=== PATIENT | female | born 1950 | race Caucasian/White ===

== ENCOUNTER 2018-08-14 10:20 | Emergency (ER) | payer MEDICARE, OTHER ==
[~2018-08-14] VITALS: Ht 157.5 cm; Wt 56.2 kg
[~2018-08-14 10:20] MED LIST: ACEBUTCAFT PO; ACEDIPPM; ALBU90OI INH; ALBU90OI6 INH; ALER PO; AMLO5 PO; ATEN50 PO; Aerochamber1 EACH MC; Allergy Relief10 M1 PO; Amlodipine Besyl5 MG PO; Antivert25 MG PO; BENADRYL 25MG PO; BISA10S PR; BUDE10.22 INH; BUTALB-ACETAMI1 EACH PO; CEPH500 PO; CHLO25B PO; CITA20 PO; CLON.5; CODACE30 PO; Colace100 MG PO; DIPH50 PO; DOXE50; Dilaudid 2 mg Ta2 MG PO; ENOX40I SC; FAMO20 PO; FAMO40 PO; FERR160 PO; FERR325 PO; FERROUS SULFATE PO; FLUC150A PO; FLUT44OIA; FURO40 PO; Flonase 0.05% N16 GM; Flovent Diskus50 MCG IH; HYDCHL25; HYDCHL25 PO; HYDCOR20 PO; IBUP600 PO; LISI5 PO; LITH300C PO; LITH300ER PO; LITH450ER PO; LITHIUM CARBONATE PO; LITHIUM PO; LORA10 PO; LOSHYD; Lithium Carbon450 MG PO; METF500 PO; MOME220I; MULVITA; Norco 5-325 Ta1 EACH PO; OMEP20ER PO; OMEPRAZOLE MAGN20 MG PO; OTC ALLERGY MED; OXYACE5T PO; PARO25; Prilosec Otc20 MG; Prilosec Otc20 MG PO; QUET100 PO; QUET25 PO; QUETIAPINE 50 MG PO; SEROQUEL PO; SERT100; SERT25; SERT50 PO; SIMV10 PO; Seroquel50 MG PO; THERAPEUTIC-M1 EAC1 PO; TOPI50 PO; TRAZ100 PO; TRIA80TC; TRIA80TC TOP; Vibramycin100 MG PO
[2018-08-14] MEDS ORDERED: FURO40 PO (10:51)
[2018-08-14] MEDS ORDERED: ASPI81CH PO (10:51)
[2018-08-14] MEDS ORDERED: POTA10T PO (10:51)
[2018-08-14] MEDS ORDERED: LISI5 PO (10:52)
[2018-08-14 11:00] LABS: BASOPHILS ABSOLUTE AUTO 0.04 K/mm3 (0.00-0.23); BASOPHILS PERCENT AUTO 0 % (0-2); EOSINOPHILS ABSOLUTE AUTO 0.08 K/mm3 (0.00-0.68); EOSINOPHILS PERCENT AUTO 1 % (0-6); Hematocrit 46.7 % (33.0-51.0); IMMATURE GRAN ABSOLUTE AUTO 0.03 K/mm3 (0.00-0.10); IMMATURE GRAN PERCENT AUTO 0 % (0-1); LYMPHOCYTES ABSOLUTE AUTO 0.52 K/mm3 (0.84-5.20); LYMPHOCYTES PERCENT AUTO 6 % (21-46); MONOCYTES ABSOLUTE AUTO 0.52 K/mm3 (0.16-1.47); MONOCYTES PERCENT AUTO 6 % (4-13); Mean Corpuscular HGB 30.5 pg (26.0-34.0); Mean Corpuscular HGB Conc 32.1 g/dL (31.5-36.5); Mean Corpuscular Volume 95 fL (80-100); Mean Platelet Volume 11.4 fL (9.1-12.4); NEUTROPHILS ABSOLUTE AUTO 7.84 K/mm3 (1.96-9.15); NEUTROPHILS PERCENT AUTO 87 % (41-73); Platelet Count 192 K/mm3 (150-400); RDW Coefficient Variation 13.3 % (11.7-14.2); RDW Standard Deviation 46.9 fL (35.1-46.3); Red Blood Cell Count 4.92 M/mm3 (3.80-5.20); White Blood Cell Count 9.03 K/mm3 (4.00-11.30)
[2018-08-14 11:19] LABS: Alanine Aminotransfer (ALT/SGP 41 U/L (12-78); Albumin, Blood 4.1 g/dL (3.4-5.0); Albumin/Globulin Ratio 1.2 (0.8-1.8); Alk Phos 115 U/L (50-136); Anion Gap 7 mmol/L (6-16); Aspartate Aminotrans (AST/SGOT 23 U/L (12-37); Bilirubin, Total 0.4 mg/dL (0.1-1.0); Blood Urea Nitrogen 24 mg/dL (8-24); Bun/Creatinine Ratio 25.6 (12.0-20.0); CO2, Blood 25 mmol/L (21-32); Calcium, Blood 9.3 mg/dL (8.5-10.1); Chloride, Blood 112 mmol/L (98-108); Creatinine, Blood 0.94 mg/dL (0.40-1.00); Globulin, Blood 3.3 g/dL (2.2-4.0); Glomerular Filtration Rate >60 (60-); Glucose, Blood 105 mg/dL (70-99); Potassium, Blood 3.5 mmol/L (3.5-5.5); Sodium, Blood 144 mmol/L (136-145); Total Protein, Blood 7.4 g/dL (6.4-8.2); Troponin I <0.015 ng/mL (0.000-0.040)
[2018-08-14 12:25] LABS: Lithium 0.39 mmol/L (0.60-1.20)
[2018-08-14] MEDS ORDERED: HYDR1TAB94 PO (14:38)
[2018-08-15] MEDS ORDERED: MONT10T PO (13:29)
[2018-08-15] MEDS ORDERED: FERSU90EL PO (13:30)
[2018-08-15] MEDS ORDERED: TRIA50 PO (13:30)
== END 2018-08-14 15:04 | disposition home or self-care (01) ==
LOC: ER 10:20
PROVIDERS: Emergency Medicine
DX: S82.831A Other fracture of upper and lower end of right fibula, initial encounter for closed fracture (principal); R55 Syncope and collapse; I73.9 Peripheral vascular disease, unspecified; F31.9 Bipolar disorder, unspecified; I10 Essential (primary) hypertension; J45.909 Unspecified asthma, uncomplicated; Z88.0 Allergy status to penicillin; Z88.2 Allergy status to sulfonamides; Z88.8 Allergy status to other drugs, medicaments and biological substances; Z79.82 Long term (current) use of aspirin; Z79.899 Other long term (current) drug therapy; X58.XXXA Exposure to other specified factors, initial encounter
CPT/HCPCS: 29515; 70450; 71046; 73610; 73620; 80053; 80178; 84484; 85025; 93005; 93010; 99284-25; A9270-GY

== ENCOUNTER 2018-08-16 10:44 | Observation (INO) | payer MEDICARE, OTHER ==
[~2018-08-16] VITALS: Ht 157.5 cm; Wt 55.0 kg
[~2018-08-16 10:44] MED LIST changes: +ASPI81CH PO; +FERSU90EL PO; +HYDR1TAB94 PO; +MONT10T PO; +POTA10T PO; +TRIA50 PO
[2018-08-16 16:20] LABS: International Normalized Ratio 0.97; Prothrombin Time Results 10.3 Sec (9.7-11.5)
--- NOTE | 2018-08-16 17:46 | NUR ---
The pt is sitting up slightly, HOB elevated 30 degrees at this time. Groin check right side with every vital sign check and with every repositioning done, and the site of puncture from today's revascularization procedure has remained without any signs of bleeding, bruising, swelling, or hematoma. The pt has denied any pain except for her right ankle, which is in a spint after the pt fell, she explained, to me, 2 days ago after "passing out at home". She does not know why she passed out. States that she is not to bear weight on the right foot at all and has been using a wheelchair for mobility. States that she lives alone, with her son directly across the street from her. Distal pulses to the left leg have been palable, and cap refill to both feet's toes less than 3 seconds. Toes of the right foot are dark red/purplish in color. The pt states that she has been told that she will need to have revascularization done to the right extremity eventually, as well. States she has numbness on the right foot, but no where else. Tolerating food and drink well this evening. Heparin drip was started per orders, and is infusing into the left arm.
--- NOTE | 2018-08-17 04:57 | NUR ---
SHIFT SUMMARY: PATIENT PAIN DIFFICULT TO GET UNDER CONTROL FIRST HALF OF SHIFT, PATIENT FINALLY ABLE TO SLEEP AFTER 0000. RIGHT GROIN SITE CHECKED EVERY 4 HOURS AND WITH ANY REPOSITIIONING, REMAINS C/D/I WITH NO SIGN OF BLEEDING, HEMATOMA, OR BUMP FORMATION. DISTAL SIGHT CAPILLARY REFILL <3 SECOUNDS, RIGHT ANKLE ELEVATED, VSS, CALL LIGHT WITHIN REACH, BED LOW AND LOCKED WITH EXIT ALARM ON.
--- NOTE | 2018-08-17 11:02 | NUR ---
STARTED NEW IV RT FOREARM, 20 G. PT TOLERATED WELL. INFUSING HEPARIN AT 17 U/KG/HR.
--- NOTE | 2018-08-17 12:10 | NUR ---
CALLED DR. SCHMITT, HE STATED HEPARIN CAN BE STOPPED AND BEGIN PREPARING PATIENT TO GO HOME. CALLED PHARMACY TO MAKE AWARE OF THE D/C OF HEPARIN.
--- NOTE | 2018-08-17 14:45 | NUR ---
TRANSFERRED CARE TO RN LESLIE COX, PT SITTING UP IN BED, ABLE TO EXPRESS NEEDS, DR. SCHMITT SHOULD BE IN TO D/C PATIENT TODAY.
--- NOTE | 2018-08-17 16:51 | NUR ---
Dr. Wagner was here to see the patient about an hour ago. Stated he would be putting in discharge orders for the pt to go home today. [facility] to get the physcian's phone number as we have not yet received discharge orders. Voice message left on Dr. Tamayo cell phone as there was no answer when I called.
--- NOTE | 2018-08-17 19:00 | NUR ---
The pt was discharged at 1800 after receiving discharge orders from Dr. Wagner. Her right groin site was without any evidence of swelling, redness, bruising, or hematoma. Distal pulses on the left lower extremity were palpable and the toes of the left foot are pink with quick capilary refill. Splint in place on the right leg prevents palpation of the distal pulses, but toes of the right foot are visible and dark red, with brisk cap refill. The pt denies pain and is eager to be discharged home.
--- NOTE | 2018-08-17 19:02 | NUR ---
The pt was taken out to a private vehicle driven by her daughter in law. She was taken by wheelchair by the LUISA Vargas from ICU who volunteered to help the patient out to go home.
== END 2018-08-17 17:54 | disposition home or self-care (01) ==
LOC: MHTC 10:44 → PCU 14:50 → MHTC 15:35 → PCU 15:35
PROVIDERS: ADMIT Radiology Diagnostic Radiology
DX: E11.51 Type 2 diabetes mellitus with diabetic peripheral angiopathy without gangrene (principal); E11.42 Type 2 diabetes mellitus with diabetic polyneuropathy; I10 Essential (primary) hypertension; I25.10 Atherosclerotic heart disease of native coronary artery without angina pectoris; F31.9 Bipolar disorder, unspecified; F41.9 Anxiety disorder, unspecified; K21.9 Gastro-esophageal reflux disease without esophagitis; D64.9 Anemia, unspecified; Z88.0 Allergy status to penicillin; Z88.2 Allergy status to sulfonamides; Z88.1 Allergy status to other antibiotic agents; Z88.8 Allergy status to other drugs, medicaments and biological substances; Z79.899 Other long term (current) drug therapy; Z79.82 Long term (current) use of aspirin
CPT/HCPCS: 36415; 85610; 85730; 99152; 99153; A9270-GY; C1725; C1760; C1769; C1887; C1894; J1644; J2250; J3010; J7030; Q9967

== ENCOUNTER → 2023-02-08 | Outpatient (CLI) | payer MEDICARE, OTHER ==
[2023-02-08 15:30] LABS: CHOL/HDL RATIO 2.3; Cholesterol 163 mg/dL (50-200); HDL Cholesterol 70 mg/dL (>39); Low Density Lipoprotein Chol 69 mg/dL (0-110); Triglycerides 118 mg/dL (30-160); Very Low Density Lipoprot Chol 23 mg/dL (6-32)
== END ==
LOC: LAB 12:48 → LAB SHORT 12:48
PROVIDERS: Family Medicine
DX: I10 Essential (primary) hypertension (principal)
CPT/HCPCS: 80061

== ENCOUNTER 2024-01-29 08:36 | Emergency (ER) | payer MEDICARE, OTHER ==
[~2024-01-29] VITALS: Ht 162.6 cm; Wt 68.0 kg
[2024-01-29 09:20] VITALS: BP 108/72
[2024-01-29 10:13] LABS: BASOPHILS ABSOLUTE AUTO 0.03 K/mm3 (0.00-0.23); BASOPHILS PERCENT AUTO 1 % (0-2); EOSINOPHILS ABSOLUTE AUTO 0.07 K/mm3 (0.00-0.68); EOSINOPHILS PERCENT AUTO 1 % (0-6); Hematocrit 38.9 % (33.0-51.0); Hemoglobin 12.6 g/dL (11.5-16.0); IMMATURE GRAN ABSOLUTE AUTO 0.02 K/mm3 (0.00-0.10); IMMATURE GRAN PERCENT AUTO 0 % (0-1); LYMPHOCYTES ABSOLUTE AUTO 0.79 K/mm3 (0.84-5.20); LYMPHOCYTES PERCENT AUTO 14 % (21-46); MONOCYTES ABSOLUTE AUTO 0.28 K/mm3 (0.16-1.47); MONOCYTES PERCENT AUTO 5 % (4-13); Mean Corpuscular HGB 32.4 pg (26.0-34.0); Mean Corpuscular HGB Conc 32.4 g/dL (31.5-36.5); Mean Corpuscular Volume 100 fL (80-100); Mean Platelet Volume 11.2 fL (9.1-12.4); NEUTROPHILS ABSOLUTE AUTO 4.49 K/mm3 (1.96-9.15); NEUTROPHILS PERCENT AUTO 79 % (41-73); Platelet Count 177 K/mm3 (150-400); RDW Coefficient Variation 14.8 % (11.7-14.2); RDW Standard Deviation 55.3 fL (35.1-46.3); Red Blood Cell Count 3.89 M/mm3 (3.80-5.20); White Blood Cell Count 5.68 K/mm3 (4.00-11.30)
[2024-01-29 11:16] LABS: Albumin, Blood 3.7 g/dL (3.4-5.0); Albumin/Globulin Ratio 1.2 (0.8-1.8); Bilirubin, Total 0.3 mg/dL (0.1-1.0); Bun/Creatinine Ratio 24.6 (12.0-20.0); Calcium, Blood 9.5 mg/dL (8.5-10.1); Creatinine, Blood 1.22 mg/dL (0.40-1.00); Globulin, Blood 3.2 g/dL (2.2-4.0); Potassium, Blood 4.2 mmol/L (3.5-5.5); Total Protein, Blood 6.9 g/dL (6.4-8.2)
[2024-01-29] MEDS ORDERED: Metoclopramide HCl 5MG / ML 2ML Vial IV ONE (11:30)
[2024-01-29] MEDS ORDERED: Dexamethasone Sod Phos 10 MG/ML 1ML VIAL IV ONE (11:30)
[2024-01-29] MEDS ORDERED: Ketorolac Tromethamine 15mg Vial IV ONE (11:30)
== END 2024-01-29 13:23 | disposition home or self-care (01) ==
LOC: ER 08:36
PROVIDERS: Physician Assistant
DX: G43.909 Migraine, unspecified, not intractable, without status migrainosus (principal); J45.909 Unspecified asthma, uncomplicated; I12.9 Hypertensive chronic kidney disease with stage 1 through stage 4 chronic kidney disease, or unspecified chronic kidney disease; N18.9 Chronic kidney disease, unspecified; K21.9 Gastro-esophageal reflux disease without esophagitis; F43.10 Post-traumatic stress disorder, unspecified; Z79.51 Long term (current) use of inhaled steroids; Z79.899 Other long term (current) drug therapy; Z79.82 Long term (current) use of aspirin; Z88.0 Allergy status to penicillin; Z88.2 Allergy status to sulfonamides; Z88.1 Allergy status to other antibiotic agents; Z88.8 Allergy status to other drugs, medicaments and biological substances
CPT/HCPCS: 70450; 80053; 85025; 96374; 96375; 99284-25; J1100; J1885; J2765

== ENCOUNTER → 2024-05-13 | Outpatient (CLI) | payer MEDICARE, OTHER ==
[2024-05-13 16:34] LABS: BASOPHILS ABSOLUTE AUTO 0.02 K/mm3 (0.00-0.23); BASOPHILS PERCENT AUTO 1 % (0-2); EOSINOPHILS PERCENT AUTO 2 % (0-6); Hematocrit 38.9 % (33.0-51.0); Hemoglobin 12.2 g/dL (11.5-16.0); IMMATURE GRAN ABSOLUTE AUTO 0.01 K/mm3 (0.00-0.10); IMMATURE GRAN PERCENT AUTO 0 % (0-1); LYMPHOCYTES ABSOLUTE AUTO 0.75 K/mm3 (0.84-5.20); LYMPHOCYTES PERCENT AUTO 17 % (21-46); MONOCYTES ABSOLUTE AUTO 0.22 K/mm3 (0.16-1.47); MONOCYTES PERCENT AUTO 5 % (4-13); Mean Corpuscular HGB 31.5 pg (26.0-34.0); Mean Corpuscular HGB Conc 31.4 g/dL (31.5-36.5); Mean Corpuscular Volume 101 fL (80-100); Mean Platelet Volume 12.1 fL (9.1-12.4); NEUTROPHILS ABSOLUTE AUTO 3.24 K/mm3 (1.96-9.15); NEUTROPHILS PERCENT AUTO 75 % (41-73); Platelet Count 144 K/mm3 (150-400); RDW Coefficient Variation 14.1 % (11.7-14.2); RDW Standard Deviation 52.5 fL (35.1-46.3); Red Blood Cell Count 3.87 M/mm3 (3.80-5.20); White Blood Cell Count 4.34 K/mm3 (4.00-11.30)
[2024-05-13 17:19] LABS: Prolactin 14.7 ng/mL (2.74-19.64)
[2024-05-13 17:24] LABS: Albumin, Blood 3.4 g/dL (3.4-5.0); Albumin/Globulin Ratio 1.1 (0.8-1.8); Bilirubin, Total 0.5 mg/dL (0.1-1.0); Bun/Creatinine Ratio 21.3 (12.0-20.0); Calcium, Blood 9.2 mg/dL (8.5-10.1); Creatinine, Blood 0.94 mg/dL (0.40-1.00); Globulin, Blood 3.2 g/dL (2.2-4.0); Potassium, Blood 4.9 mmol/L (3.5-5.5); Thyroid Stimulating Hormone 1.11 uIU/mL (0.360-4.800); Total Protein, Blood 6.6 g/dL (6.4-8.2)
== END | disposition home or self-care (01) ==
LOC: LAB SHORT 11:30 → LAB 11:30
PROVIDERS: Student in an Organized Health Care Education/Training Program
DX: E55.9 Vitamin D deficiency, unspecified (principal); R53.82 Chronic fatigue, unspecified; Z79.899 Other long term (current) drug therapy; Z86.011 Personal history of benign neoplasm of the brain
CPT/HCPCS: 80053; 80178; 82306; 83036; 84146; 84443; 85025

== ENCOUNTER → 2025-02-28 | Outpatient (CLI) | payer MEDICARE, OTHER ==
[2025-02-28 11:35] LABS: BASOPHILS ABSOLUTE AUTO 0.04 K/mm3 (0.00-0.23); BASOPHILS PERCENT AUTO 1 % (0-2); EOSINOPHILS ABSOLUTE AUTO 0.07 K/mm3 (0.00-0.68); EOSINOPHILS PERCENT AUTO 2 % (0-6); Hematocrit 38.3 % (33.0-51.0); Hemoglobin 12.5 g/dL (11.5-16.0); IMMATURE GRAN ABSOLUTE AUTO 0.02 K/mm3 (0.00-0.10); IMMATURE GRAN PERCENT AUTO 0 % (0-1); LYMPHOCYTES ABSOLUTE AUTO 0.89 K/mm3 (0.84-5.20); LYMPHOCYTES PERCENT AUTO 20 % (21-46); MONOCYTES ABSOLUTE AUTO 0.34 K/mm3 (0.16-1.47); MONOCYTES PERCENT AUTO 8 % (4-13); Mean Corpuscular HGB Conc 32.6 g/dL (31.5-36.5); Mean Corpuscular Volume 93 fL (80-100); NEUTROPHILS ABSOLUTE AUTO 3.19 K/mm3 (1.96-9.15); NEUTROPHILS PERCENT AUTO 70 % (41-73); NRBC ABSOLUTE 0.00 K/mm3 (0.00-0.02); NRBC Auto 0.0 /100 WBC (0.0-0.2); Platelet Count 178 K/mm3 (150-400); RDW Coefficient Variation 15.9 % (11.7-14.2); RDW Standard Deviation 54.3 fL (35.1-46.3)
[2025-02-28 11:54] LABS: Alanine Aminotransfer (ALT/SGP 96.0 U/L (12-78); Albumin, Blood 3.3 g/dL (3.4-5.0); Albumin/Globulin Ratio 0.8 (0.8-1.8); Anion Gap 13.0 mmol/L (3-11); Aspartate Aminotrans (AST/SGOT 21.0 U/L (12-37); Bilirubin, Total 0.4 mg/dL (0.1-1.0); Blood Urea Nitrogen 24.0 mg/dL (8-24); CO2, Blood 25.0 mmol/L (21-32); Calcium, Blood 9.9 mg/dL (8.5-10.1); Chloride, Blood 107.0 mmol/L (98-108); Creatinine, Blood 1.24 mg/dL (0.40-1.00); Globulin, Blood 3.9 g/dL (2.2-4.0); Glucose, Blood 93.0 mg/dL (70-99); Potassium, Blood 4.6 mmol/L (3.5-5.5); Sodium, Blood 140.0 mmol/L (136-145); Total Protein, Blood 7.2 g/dL (6.4-8.2)
== END ==
LOC: LAB SHORT 11:30 → LAB 11:30
DX: R07.9 Chest pain, unspecified (principal)
CPT/HCPCS: 80053; 84484; 85025